=== PATIENT | male | born 1970 | race African-American/Black ===

== ENCOUNTER 2019-02-12 18:00 | Emergency (ER) | payer SELFPAY ==
[2019-02-12] MEDS ORDERED: Ibuprofen 800 MG TAB ONE (18:35)
--- NOTE | 2019-02-12 18:40 | RAD ---
XR Ribs Lt>=2 View W/PA CXR History: Injury. Left rib pain. Comparison: None. Findings: The lungs are clear. Clavicles are intact. Cardiac silhouette and mediastinal contours are within normal limits. No acute displaced left rib fracture. Impression: No acute displaced left rib fracture. Clear lungs.
== END 2019-02-12 19:05 | disposition home or self-care (01) ==
LOC: NAV ERS 18:00
DX: R07.89 Other chest pain (principal); F17.220 Nicotine dependence, chewing tobacco, uncomplicated

== ENCOUNTER 2020-12-20 11:57 | Emergency (ER) | payer SELFPAY ==
[~2020-12-20 11:57] MED LIST: Iopamidol 370 76% 100 ML VIAL ONE
[2020-12-20] MEDS ORDERED: Ondansetron PF 4 MG/2 ML Vial ONE (12:22)
[2020-12-20 12:43] LABS: #Basophils 0.1 thou/uL (0.0-0.2); #Lymphocytes 0.5 thou/uL (1.20-3.40); #Monocytes 0.4 thou/uL (0.11-0.59); #Neutrophils 7.1 thou/uL (1.40-6.50); %Basophils 1.2 % (0.0-1.0); %Lymphocytes 5.8 % (21.0-51.0); %Monocytes 4.4 % (0.0-10.0); %Neutrophils 88.7 % (42.0-75.0); Hemoglobin 13.3 g/dL (14.0-18.0); Mean Corpuscular HGB CONC 31.3 g/dL (32.0-36.0); Mean Corpuscular Hemoglobin 35.1 pg (27.0-31.0); Mean Platelet Volume 7.6 fL (7.4-10.4); Platelet Count 168 thou/uL (130-400); RBC Distribution Width 11.8 % (11.5-14.5); Red Blood Cell (RBC) Count 3.78 mill/uL (4.70-6.10)
[2020-12-20 12:47] LABS: ALT (SGPT) 57 U/L (8-55); AST (SGOT) 115 U/L (5-34); Albumin 4.2 g/dL (3.5-5.0); Alkaline Phosphatase 130 U/L (40-110); Anion Gap 22 mmol/L (10-20); BUN (Urea Nitrogen) 8 mg/dL (8.9-20.6); Bilirubin, Total 1.4 mg/dL (0.2-1.2); Calc. Creatinine Clearance 0 mL/min (70-130); Carbon Dioxide 20 mmol/L (22-29); Chloride 97 mmol/L (98-107); Globulin 4.1 g/dL (2.4-3.5); Glucose 133 mg/dL (70-105); Potassium 4.4 mmol/L (3.5-5.1); Protein, Total 8.3 g/dL (6.0-8.3); Sodium 135 mmol/L (136-145)
[2020-12-20] MEDS ORDERED: Sodium Chloride 0.9% 1,000 ML ONE (13:06)
[2020-12-20 13:11] LABS: Bilirubin Negative (Negative); Blood, Urine Negative (Negative); Clarity Clear (Clear); Glucose, Urine (Dipstick) Negative (Negative); Ketone, Urine Negative (Negative); Leukocyte Negative (Negative); Nitrite Negative (Negative); Urobilinogen 0.2 mg/dL (Less than 2); pH, Urine 5.5 (5.0-9.0)
[2020-12-20 13:20] LABS: Protein, Urine (Dipstick) Trace mg/dL (Neg-Trace); Specific Gravity, Urine 1.025 (1.002-1.036)
[2020-12-20 13:42] LABS: Lipase 3304 U/L (8-78)
== END 2020-12-20 14:51 | disposition short-term general hospital (02) ==
LOC: NAV ERS 11:57
DX: K56.600 Partial intestinal obstruction, unspecified as to cause (principal); K85.90 Acute pancreatitis without necrosis or infection, unspecified; F10.10 Alcohol abuse, uncomplicated; F17.220 Nicotine dependence, chewing tobacco, uncomplicated
CPT/HCPCS: 74177; 80053; 81003; 83605; 83690; 85025; 93005; 94760; 96374; J2405; J7050; Q9967